=== PATIENT | female | born 1930 | race Caucasian/White ===

== ENCOUNTER 2018-03-27 16:55 | Inpatient (IN) | payer MEDICARE, OTHER ==
[2018-03-27] VITALS (9 sets, daily range): BP systolic 92–116; BP diastolic 36–47; BMI 25.5
[~2018-03-27] VITALS: Ht 144.8 cm; Wt 56.3 kg
--- NOTE | ~2018-03-27 | OP ---
PATIENT NAME: SHAWNA CASTANEDA MEDICAL RECORD: [id number] :34 LOCATION:[facility] D.2314 ADMISSION DATE:03/27/18 SURGEON: JENNY SLOAN MD DATE OF OPERATION: 03/27/2018 PROCEDURE: DC cardioversion. INDICATION: Hemodynamic instability with atrial fibrillation, new onset. PROCEDURE IN DETAIL: After informed consent was obtained and after detailed explanation of risks, benefits as well as alternative therapies, the patient and her family elected to proceed with DC cardioversion. She was given IV conscious sedation in the form of 50 mcg of fentanyl. She had an unstable heart rate and blood pressure. She received 1 shock at 275 joules restoring sinus rhythm, stabilizing her heart rate at 80 in sinus rhythm and systolic blood pressure 120. OVERALL IMPRESSION: Successful DC cardioversion from hemodynamic instability with atrial fibrillation to hemodynamic stability with sinus rhythm. TRANSINT:[id number] Voice Confirmation ID: [id number] DOCUMENT ID: [id number] JENNY SLOAN MD at 1711 CC: [id number] DICTATION DATE: 03/27/182120 VP DELIVERY: 03/27/182234 ADM IN [place] [id number] [place] [address]
--- NOTE | ~2018-03-27 | CN ---
PATIENT NAME:SHAWNA RAM MEDICAL RECORD: [id number] : 34 LOCATION:[facility].2314 ADMIT DATE: 03/27/18 ACCOUNT: [id number] CONSULTING PHYSICIAN: JENNY SLOAN MD REFERRING PHYSICIAN: EMANUEL FITZPATRICK DO DATE OF CONSULTATION: 03/27/2018 DIAGNOSES: 1. New onset atrial fibrillation. 2. Hypotension. 3. Shortness of breath, dyspnea on exertion. 4. Noninsulin-dependent diabetes. HISTORY OF PRESENT ILLNESS: Mrs. Ram has had a history of atrial fibrillation in the past. She has not had cardioversion in the past. She presents today with listlessness, shortness of breath, dyspnea on exertion, no real chest discomfort, found to be in new onset atrial fibrillation with heart rates in the 160s. She was placed on Cardizem drip and Betapace. This caused hypotension as well as bradycardia. She underwent DC cardioversion. She is now sinus rhythm in the 80s. She did have ST-T changes on her EKG during multiple EKGs for the atrial fibrillation. She has no history of ischemic heart disease. PHYSICAL EXAMINATION: GENERAL APPEARANCE: Well-nourished, well-developed, appears stated age. Level of distress, comfortable. PSYCHIATRIC: Mental status, alert, normal affect. Orientation, oriented to time, place and person. EYES: Lids and conjunctiva, noninjected. No discharge, no pallor. ENT: Lips, teeth, gums, normal dentition. Oropharynx, no cyanosis, no pallor. NECK: Carotid arteries, bilateral normal upstroke, no bruits, no thrills. JUGULAR VEINS: No jugular venous pressure or distention. CERVICAL LYMPH NODES: Nontender, nonenlarged. THYROID: Not enlarged. Nontender. No nodules. LUNGS: Respiratory effort, unlabored. CHEST: Normal curvature. No thoracic deformity. No chest wall tenderness. Percussion, resonant. Auscultation, clear. No wheezes, no rales, no rhonchi. CARDIOVASCULAR: Precordial exam, nondisplaced. No heaves or pericardial thrills. Rate and rhythm, regular. Heart sounds, normal S1, normal S2. No S3, no gallop, no rub. Systolic murmur, not heard. Diastolic murmur, not heard. EXTREMITIES: No cyanosis, no edema. Peripheral pulses, full and equal in all extremities, except as noted. No bruits appreciated. ABDOMEN: Soft, nondistended. Normal aorta. No bruit. Nontender. No masses. Liver, nontender, no hepatomegaly. Spleen, nontender, no splenomegaly. MUSCULOSKELETAL: No joint tenderness. No joint swelling. No erythema. NEUROLOGICAL: Normal gait, normal strength, normal tone. SKIN: Warm and dry. REVIEW OF SYSTEMS: The patient reports easy bruising but reports no swollen glands. The patient reports no fever, no night sweats, no significant weight gain, no significant weight loss. No significant exercise tolerance. The patient reports no dry eyes, no irritation, no vision change. Patient reports no difficulty hearing and no ear pain. Patient reports no frequent nose bleeds or nose and sinus problems. Patient reports on arm pain on exertion. No shortness of breath while lying down. No history of heart murmur. Patient reports no cough, no wheezing or coughing up blood. Patient reports no CONSULT REPORT [id number] TONYA,SHAWNA LINDA abdominal pain, no vomiting. Normal appetite. No diarrhea and not vomiting blood. No nausea and no constipation. Patient reports no incontinence. No difficulty urinating. No hematuria. No increased frequency. Patient reports no muscle aches. No weakness, no arthralgias, no back pain. No swelling of the extremities. Patient reports no abnormal mole, no jaundice, no rashes. Reports no loss of consciousness. No weakness and no numbness. No seizures, dizziness, or headaches. The patient reports no depression, no sleep disturbance, feeling safe in a relationship and no alcohol abuse. Patient reports on fatigue. Reports no runny nose or sinus pressure. No itching, no hives, and no frequent sneezing. IMPRESSION: Atrial fibrillation, now back in sinus rhythm. With the EKG changes, most likely she does have ischemic heart disease as a component to this. She was given 120 mg of Betapace as well as Cardizem. This caused bradycardia. We will plan to restart the Betapace tomorrow at 40 or 80 mg depending upon her ventricular response in the morning. At this time, she is stable with a systolic blood pressure in the 120s, heart rate in the 80s. We will reevaluate in the morning for timing of cardiac catheterization. TRANSINT:[id number] Voice Confirmation ID: [id number] DOCUMENT ID: [id number] JENNY SLOAN MD at 1711 CC: [id number] DICTATION DATE: 03/27/182050 RESERVATIONS AND TICKETING AGENT: 03/27/182149 ADM IN [place] [id number] [place] [id number]
--- NOTE | ~2018-03-27 | DS ---
PATIENT:SHAWNA RAM :34 MEDICAL RECORD: [id number] DISCHARGE SUMMARY ADMISSION DATE: 03/27/18 DISCHARGE DATE: 04/01/18 DATE OF SERVICE AND DISCHARGE: 04/01/2018. DIAGNOSES: 1. Atrial fibrillation. 2. Status post DC cardioversion. 3. Angina. 4. Coronary artery disease. 5. Two-vessel PTCA and stent. HOSPITAL COURSE: Ms. Ram presents with atrial fibrillation and angina, found to have two-vessel coronary artery disease, underwent successful DC cardioversion and discharged home with the addition of aspirin, Plavix, and sotalol to her medical regimen. Follow up with [facility] in one month. TRANSINT:[id number] Voice Confirmation ID: [id number] DOCUMENT ID: [id number] JENNY SLOAN MD at 1403 CC: [id number] DICTATION DATE: 04/01/18 1036 BAR TURNER: 04/01/18 1536 DIS IN 04/01/18 [place] [id number] [place] [address]
--- NOTE | ~2018-03-27 | OP ---
PATIENT NAME: SHAWNA CASTANEDA MEDICAL RECORD: [id number] :32 LOCATION:D.M2 D.2121 ADMISSION DATE:03/27/18 SURGEON: JENNY SLOAN MD DATE OF OPERATION: 03/29/2018 PROCEDURES: 1. PTCA stent LAD. 2. Intravascular ultrasound. 3. Selective coronary angiography. INDICATION: Angina and coronary artery disease. PROCEDURE IN DETAIL: After informed consent was obtained and after a detailed description of risks, benefits as well as alternative therapies, the patient elected to proceed with angiogram and angioplasty. The left femoral area was prepped and draped in normal sterile fashion. Left femoral artery was cannulated via modified Seldinger technique with placement of 6-Paraguayan sheath. All catheters exchanged through this sheath. FINDINGS: The left anterior descending has 70% stenosis in the proximal midsection confirmed by intravascular ultrasound, was addressed with a 3.5 x 12 mm Integrity stent. Result was 0% residual stenosis. OVERALL IMPRESSION: Successful percutaneous transluminal angioplasty stent of the left anterior descending going from 70% initial stenosis to 0% residual. TRANSINT:[id number] Voice Confirmation ID: [id number] DOCUMENT ID: [id number] JENNY SLOAN MD at 0847 CC: [id number] DICTATION DATE: 03/29/18 1237 SENIOR STAFF CONSULTANT: 03/29/18 1248 ADM IN [place] [id number]
--- NOTE | ~2018-03-27 | HEMODYNAMI ---
PATIENT:SHAWNA CASTANEDA MEDICAL RECORD: [id number] : 34 LOCATION:[facility] D231 ADMISSION DATE: 03/27/18 Generatedon:03/28/201811:42 Patient name: SHAWNA CASTANEDA Patient #: [id number] SSN: : 1930 Date of study: 03/28/2018 Page: Of Hemodynamic Procedure Report Patient Data Patient Demographics Procedure consent was obtained First Name: SHAWNA Gender: Female Last Name: TONYA : 1930 [facility] Initial: LINDA Age: 87 year(s) Patient #: [id number] Race: Additional ID: [id number] Contact details Address: [address] State: [place] City: [place] Zip code: [address] Past Medical History Allergies Allergen Reaction Date Comments Reported Sulfa drugs 04/27/2016 Sulfa drugs 03/28/2018 Admission Admission Data Admission Date: 03/27/2018 Admission Time: 18:40 Room #: [facility] Procedure Procedure Types Cath Procedure Diagnostic Procedure [facility] w/Coronaries PCI Procedure Coronary Stent Coronary Stent Initial Procedure Description Procedure Date Procedure Date: 03/28/2018 Procedure Start Time: 11:26 Procedure End Time: 11:39 Procedure Staff Name Function Luis A Gaming MD Performing Physician Barbara Kelsey RT Monitor Tamar Serrano RT Scrub Hal Anand RN Nurse Procedure Data Cath Procedure Fluoroscopy Diagnostic fluoroscopy Total fluoroscopy Time: 2.2 time: 2.2 min min Diagnostic fluoroscopy Total fluoroscopy dose: 273 dose: 273 mGy mGy Contrast Material Contrast Material Type Amount (ml) Isovue 300 67 Entry Location Entry Primary Successful Side Size Upsize Upsize Entry Closure Succes sful Closure Location (Fr) 1 (Fr) 2 (Fr) Remarks Device Remarks Femoral Right 5 Fr 6 Fr Exoseal artery Short Estimated blood loss: 10 ml Diagnostic catheters Device Type Used For End Catheter Placement MULTIPACK Pigtail 5 Fr Procedure catheter MULTIPACK JL 4.0 5Fr Procedure catheter MULTIPACK 3DRC 5Fr Procedure catheter Procedure Complications No complications Procedure Medications Medication Administration Route Dosage 0.9% NaCl I.V. 100 ml/hr Oxygen NC 2 l/min Heparin Flush Bag added to field 2 bags (1000units/500ml NS) Lidocaine 2% 20 Heparin Bolus I.V. 4000 units Integrilin (Bolus I.V. 4.5 ml 2mg/ml) Integrilin (Bolus wasted 5.5 ml 2mg/ml) Plavix P.O. 600 mg Hemodynamics Rest Heart Rate: 73 (bpm) Snapshots Pre Cath Intra NCS Post Cath Vital Signs Time Heart Resp SPO2 etCO2 NIBP (mmHg) Rhythm Pain Sedation Rate (ipm) (%) (mmHg) Status Level (bpm) 11:15:43 72 22 99 0 111/51(88) NSR 0 (11) 10(A) , No pain 11:20:29 74 14 99 0 124/53(93) NSR 0 (11) 10(A) , No pain 11:25:53 73 19 97 0 125/70(102) NSR 0 (11) 10(A) , No pain 11:30:34 69 29 92 0 137/112(124) NSR 0 (11) 10(A) , No pain 11:35:23 79 20 96 0 140/63(106) NSR 0 (11) 10(A) , No pain Medications Time Medication Route Dose Verified Delivered Reason Notes Effectiveness by by 11:14:58 0.9% NaCl I.V. 100 Hal Hal Per physician ml/hr Cheng Anand RN RN 11:15:08 Oxygen NC 2 Hal Hal Per physician l/min Cheng Anand RN RN 11:15:30 Heparin Flush added 2 Hal Hal used for Bag to bags Cheng Anand procedure (1000units/500ml field RN RN NS) 11:15:41 Lidocaine 2% 20ml Hal Hal for local vial Cheng Anand anesthetic RN RN 11:32:45 Heparin Bolus I.V. 4000 Hal Hal for units Cheng Anand anticoagulation RN RN 11:33:02 Integrilin I.V. 4.5 Hal Hal for (Bolus 2mg/ml) ml Cheng Anand antiplatelet RN RN therapy 11:33:23 Integrilin wasted 5.5 Hal Hal to sharp's (Bolus 2mg/ml) ml Lorigan Lorigan RN RN 11:41:43 Plavix P.O. 600 Hal Hong for mg Cheng Anand antiplatelet RN RN therapy Procedure Log Time Note 10:55:48 Time tracking: Regular hours (M-F 7:00 - 5:00) 10:55:52 Plan of Care:Hemodynamics will remain stable., Cardiac rhythm will remain stable., Comfort level will be maintained., Respiratory function will remain adequate., Patient/ family verbilizes understanding of procedure., Procedure tolerated without complication., Recovers from procedure without complications.. 10:56:47 H&P Date Dictated: 03/27/2018 Within 30 days and on chart.. 10:57:07 Tamar Counts RT(R) sent for patient. Start room use. 11:14:38 Patient received from ICU to CCL 1 Alert and oriented. Tansferred to table in Supine position. 11:14:39 Warm blankets applied, and sujey hugger turned on for patient comfort. 11:14:39 Correct patient and procedure confirmed by team. 11:14:41 Signed procedure consent form obtained from patient. 11:14:41 ECG and BP/O2 sat monitors applied to patient. 11:14:42 Vital chart was started 11:14:43 Full Disclosure recording started 11:14:58 0.9% NaCl 100 ml/hr I.V. was administered by Hal Anand RN; Per physician; 11:15:08 Oxygen 2 l/min NC was administered by Hal Anand RN; Per physician; 11:15:30 Heparin Flush Bag (1000units/500ml NS) 2 bags added to field was administered by Hal Anand RN; used for procedure; 11:15:35 Baseline sample Acquired. 11:15:39 Rhythm: sinus rhythm 11:15:41 Lidocaine 2% 20ml vial was administered by Hal Anand RN; for local anesthetic; 11:15:42 Pre-procedure instructions explained to patient. 11:15:42 Pre-op teaching completed and patient verbalized understanding. 11:15:45 Family in waiting room. 11:15:50 Patient NPO since Midnight. 11:16:08 Patient allergic to Sulfa drugs 11:16:11 Is the patient allergic to Iodine/contrast media? No. 11:16:13 Is patient on blood thinner?No 11:16:14 Patient diabetic? Yes. 11:16:33 PT SAID TOOK HER OFF METFORMIN 11:16:38 Patient not . Patient is over age 55. 11:16:49 Previous problem with sedation/anesthesia? No ? 11:16:50 Snore? No 11:16:51 Sleep apnea? No 11:16:51 Deviated septum? No 11:16:52 Opens mouth fully? Yes 11:16:53 Sticks out tongue? Yes 11:16:55 Airway obstruction? No ? 11:16:58 Dentures? Yes OUT 11:17:01 Pre procedure: right dorsailis pedis pulse 1+ Palpable, but thready & weak; easily obliterated 11:17:04 Patient pain scale 0/10 ?. 11:17:32 IV patent on arrival in right forearm with 0.9% NaCl at [facility]. 11:17:39 Right groin area was prepped with chlora-prep and draped in sterile fashion 11:17:40 Alarms reviewed by R. N. 11:17:41 Sharps counted by scrub and verified by R.N. 11:17:42 --------ALL STOP TIME OUT------ 11:17:43 Final Timeout: patient, procedure, and site verified with staff and physician. All members of the team are in agreement. 11:17:45 Right groin site verified by team. 11:17:48 Physical assessment completed. ASA score P 2 - A patient with mild systemic disease as per Luis A Gaming MD. 11:17:51 Sedation plan: IV Moderate Sedation Medication:Versed, Fentanyl 11:17:56 Use device set Femoral Dx 11:17:57 ACIST Syringe (45234) opened to sterile field. 11:17:57 Bag Decanter () opened to sterile field. 11:17:58 ACIST Hand Control (36539) opened to sterile field. 11:17:59 ACIST Manifold (55736) opened to sterile field. 11:18:00 Tegaderm 4 x 4 (1626W) opened to sterile field. 11:18:01 Medline Cath Pack ([id number]) opened to sterile field. 11:18:01 DIAGNOSTIC WIRE .035 260cm J wire (362055) opened to sterile field. 11:18:03 DIAGNOSTIC Multipack 5Fr catheter set (QG2188) opened to sterile field. 11:18:04 SHEATH Prelude 5Fr 0.035 (ZSV-0A-18-035) opened to sterile field. 11:25:25 Zero performed for pressure channel P1 11:25:33 Zero performed for pressure channel P1 11:25:40 Procedure started. 11:26:06 Local anesthetic to right femoral artery with Lidocaine 2% by Luis A Gaming MD.INITIAL ACCESS ONLY 11:27:00 A 5 Fr sheath was inserted into the Right Femoral artery 11:27:08 A MULTIPACK Pigtail 5 Fr catheter was advanced over the wire and used for Procedure. 11:27:22 LV gram done using PEARSON 11::31 Injector settings: Ml/sec: 10, Volume: 20, 11:27:55 EF : 30 % 11:27:57 Catheter removed. 11:28:01 A MULTIPACK JL 4.0 5Fr catheter was advanced over the wire and used for Procedure. 11:28:48 LCA angiography performed. 11:29:24 Catheter removed. 11:29:30 A MULTIPACK 3DRC 5Fr catheter was advanced over the wire and used for Procedure. 11:30:12 RCA angiography performed. 11:30:13 Catheter removed. 11:30:30 INFLATOR Merit BasixCompak (DH0231) opened to sterile field. 11:30:30 SHEATH 6FR [place] (VXB503) opened to sterile field. 11:30:31 CHOICE PT Extra Support 182cm wire ([id number]) opened to sterile field. 11:30:53 Sheath upsized to a 6 Fr Short. 11:31:07 GUIDE 6FR AR 2.0 catheter (OV3VC89) opened to sterile field. 11:31:22 6 Fr AR 2 guide catheter was inserted over the wire 11:32:10 CHOICE ES 182 wire advanced. 11:32:45 Heparin Bolus 4000 units I.V. was administered by Hal Anand RN; for anticoagulation; 11:33:02 Integrilin (Bolus 2mg/ml) 4.5 ml I.V. was administered by Hal Anand RN; for antiplatelet therapy; 11:33:18 Wire advanced across lesion. 11:33:23 Integrilin (Bolus 2mg/ml) 5.5 ml wasted was administered by Hal Anand RN; to sharp's; 11:33:53 Place stent Inflation Number: 1 A INTEGRITY RX 2.75 x 14 stent ([id number]) was prepped and advanced across the Dist RCA. The stent was deployed at 11 VENU for 0:10 (min:sec). 11:34:09 Stent catheter was removed intact over wire. 11:34:10 Wire removed. 11:34:10 Guide catheter removed. 11:34:22 EXOSEAL 6Fr (EX600) opened to sterile field. 11:34:33 Sheath removed intact; hemostasis achieved with Exoseal to the Right Femoral artery. 11:34:53 Procedure ended.(Physican Out) 11:35:26 Fluoroscopy time 02.20 minutes. 11:35:30 Fluoroscopy dose: 273 mGy 11:35:30 Flurop Dose total: 273 11:35:33 Contrast amount:Isovue 300 67ml. 11:35:38 Post-op/insertion site Left Femoral artery dressed using a 4 x 4 and Tegaderm. 11:36:17 Post procedure rhythm: unchanged. 11:36:19 Estimated blood loss: 10 ml 11:36:20 Post procedure instruction explained to patient.Patient verbalizes understanding. 11:36:20 Patient needs reinforcement of post procedure teaching. 11:36:40 Procedure type changed to Cath procedure, Diagnostic procedure, LHC, LHC w/Coronaries, PCI procedure, Coronary Stent, Coronary Stent Initial 11:38:49 Procedure and supply charges have been captured, reviewed, submitted and are correct. 11:38:52 Procedure Complication : No complications 11:39:16 Vital chart was stopped 11:39:16 See physician's report for complete and final results. 11:39:19 Report given to ICU. 11:39:21 Patient transfered to ICU with Bed. 11:39:38 Procedure ended. 11:39:38 Full Disclosure recording stopped 11:39:40 End room use (Document Last) 11:41:43 Plavix 600 mg P.O. was administered by Hal Anand RN; for antiplatelet therapy; Intervention Summary Intervention Notes Time ActionType Lesion and Equipment Action# Pressure Duration Attributes Used 11:33:53 Place stent Dist RCA INTEGRITY RX 1 11 00:10 2.75 x 14 stent ([id number]) Device Usage Item Name Manufacture Quantity Catalog Number Hospital Part Current M inimal Lot# / Charge Number Stock Stock Serial# Code ACIST Syringe Acist 1 09034 998175 772934 514719 2 0 (65203) Medical Systems Inc Bag Decanter Microtek 1 889547 62452 506176 5 (2001S) Medical Inc. ACIST Hand Acist 1 20322 556535 144489 576751 5 Control (27254) Medical Systems Inc ACIST Manifold Acist 1 08949 543612 823578 600804 5 (19335) Medical Systems Inc Tegaderm 4 x 4 3M 1 1626W 454839 635499 100448 5 (1626W) Medline Cath Cardinal 1 [id number] 794757 67107 159912 5 Pack Health ([id number]) DIAGNOSTIC WIRE St Fady 1 143547 494733 547807 166267 3 0 .035 260cm J wire (350578) DIAGNOSTIC Cardinal 1 HI8629 618722 36743 042639 3 0 Multipack 5Fr Health catheter set (WJ5233) SHEATH Prelude Merit 1 JCJ-0Y-78-035 967945 416478 521159 5 5Fr 0.035 Medical (JXX-1W-91-035) MULTIPACK Cardinal 1 896598 5 Pigtail 5 Fr Health catheter MULTIPACK JL Cardinal 1 087953 5 4.0 5Fr Health catheter MULTIPACK 3DRC Cardinal 1 473025 5 5Fr catheter Health INFLATOR Merit Merit 1 HL4531 347809 720899 187527 1 5 BasAppian Medical Medical ([id number]) SHEATH 6FR Terumo 1 ZSM703 987057 579840 778944 4 0 [place] (VHA673) CHOICE PT Extra [place] 1 [id number] 063816 440899 920812 5 Support 182cm Scientific wire ([id number]) GUIDE 6FR AR Medtronic 1 [id number] 126430 25705 448490 1 2.0 catheter ([id number]) INTEGRITY RX Medtronic 1 [id number] 987130 799112 754284 5 [id number] 2.75 x 14 stent ([id number]) EXOSEAL 6Fr Cardinal 1 EX600 511086 264398 217293 1 0 (EX600) Health Signature Audit [place] Stage Time Signature Unsigned Intra-Procedure 03/28/2018 Barbara Kelsey 11:42:09 AM RT(R) Signatures Monitor : Barbara Kelsey Signature : RT Date : Time : [facility] [address] [facility] [address]
--- NOTE | ~2018-03-27 | HEMODYNAMI ---
PATIENT:SHAWNA CASTANEDA MEDICAL RECORD: [id number] : 34 LOCATION:[facility] D.231 ADMISSION DATE: 03/27/18 Generatedon:03/29/201812:39 Patient name: SHAWNA CASTANEDA Patient #: [id number] SSN: : 1930 Date of study: 03/29/2018 Page: Of Hemodynamic Procedure Report Patient Data Patient Demographics Procedure consent was obtained First Name: SHAWNA Gender: Female Last Name: TONYA : 1930 [facility] Initial: LINDA Age: 87 year(s) Patient #: [id number] Race: Additional ID: [id number] Contact details Address: [address] State: [place] City: [place] Zip code: [address] Past Medical History Allergies Allergen Reaction Date Comments Reported Sulfa drugs 04/27/2016 Sulfa drugs 03/28/2018 Admission Admission Data Admission Date: 03/27/2018 Admission Time: 18:40 Room #: 2314 Procedure Procedure Types Cath Procedure Diagnostic Procedure FFR/IVUS Intra-Coronary IVUS Initial PCI Procedure Coronary Stent Coronary Stent Initial Procedure Description Procedure Date Procedure Date: 03/29/2018 Procedure Start Time: 12:22 Procedure End Time: 12:39 Procedure Staff Name Function Luis A Gaming MD Performing Physician Tamar Serrano RT Monitor Bc Rios RN Nurse Barbara Kelsey RT Scrub Procedure Data Cath Procedure Fluoroscopy Diagnostic fluoroscopy Total fluoroscopy Time: 2.9 time: 2.9 min min Diagnostic fluoroscopy Total fluoroscopy dose: 206 dose: 206 mGy mGy Contrast Material Contrast Material Type Amount (ml) Isovue 300 56 Entry Location Entry Primary Successful Side Size Upsize Upsize Entry Closure Succes sful Closure Location (Fr) 1 (Fr) 2 (Fr) Remarks Device Remarks Femoral Left 6 Fr Exoseal artery Short Estimated blood loss: 10 ml Procedure Complications No complications Procedure Medications Medication Administration Route Dosage Oxygen NC 4 l/min Heparin Flush Bag added to field 2 bags (1000units/500ml NS) 0.9% NaCl I.V. 100 ml/hr Fentanyl I.V. 25 mcg Versed I.V. 0.5 mg Heparin Bolus I.V. 4000 units Nitroglycerin IC/IA I.C. 200 mcg Hemodynamics Rest Heart Rate: 78 (bpm) Snapshots Pre Cath Intra NCS Post Cath Vital Signs Time Heart Resp SPO2 etCO2 NIBP Rhythm Pain Sedation Rate (ipm) (%) (mmHg) (mmHg) Status Level (bpm) 11:54:22 78 16 96 0 142/72(97) NSR 0 (11) 10(A) , No pain 11:59:45 79 16 93 0 126/56(92) NSR 0 (11) 10(A) , No pain 12:04:26 81 15 96 0 136/72(98) NSR 0 (11) 10(A) , No pain 12:09:13 76 16 83 0 131/53(90) NSR 0 (11) 10(A) , No pain 12:13:58 76 17 83 0 110/57(95) NSR 0 (11) 10(A) , No pain 12:18:38 70 17 98 0 119/52(95) NSR 0 (11) 10(A) , No pain 12:23:17 70 16 99 0 110/57(89) NSR 0 (11) 9(A) , No pain 12:27:57 70 17 100 0 118/50(78) NSR 0 (11) 9(A) , No pain 12:32:38 71 17 100 0 116/57(87) NSR 0 (11) 9(A) , No pain 12:35:40 73 17 100 0 121/67(95) NSR 0 (11) 9(A) , No pain Medications Time Medication Route Dose Verified Delivered Reason Notes Effectiveness by by 11:53:09 Oxygen NC 4 Luis A Yancey Per physician l/min Amberly Rios RN 11:53:17 Heparin Flush added 2 Luis A Yancey used for Bag to bags Amberly Rios RN procedure (1000units/500ml field NS) 11:53:26 0.9% NaCl I.V. 100 Luis A Yancey Per physician ml/hr Amberly Rios RN 12:19:59 Fentanyl I.V. 25 Luis A Yancey for sedation mcg Amberly Rios RN 12:20:14 Versed I.V. 0.5 Luis A Yancey for sedation mg Amberly Rios RN 12:23:52 Heparin Bolus I.V. 4000 Luis A Yancey for units Amberly Rios RN anticoagulation 12:31:49 Nitroglycerin I.C. 200 Luis A Gunn for IC/IA mcg Amberly Gaming MD vasodilation Procedure Log Time Note 11:33:16 Time tracking: Regular hours (M-F 7:00 - 5:00) 11:33:21 Plan of Care:Hemodynamics will remain stable., Cardiac rhythm will remain stable., Comfort level will be maintained., Respiratory function will remain adequate., Patient/ family verbilizes understanding of procedure., Procedure tolerated without complication., Recovers from procedure without complications.. 11:34:06 Tamar Counts RT(R) sent for patient. Start room use. 11:46:42 Patient received from ICU to CCL 1 Alert and oriented. Tansferred to table in Supine position. 11:46:45 Warm blankets applied, and sujey hugger turned on for patient comfort. 11:46:45 Correct patient and procedure confirmed by team. 11:46:47 Signed procedure consent form obtained from patient. 11:46:49 Pre-procedure instructions explained to patient. 11:46:49 Pre-op teaching completed and patient verbalized understanding. 11:53:09 Oxygen 4 l/min NC was administered by Bc Riso RN; Per physician; 11:53:17 Heparin Flush Bag (1000units/500ml NS) 2 bags added to field was administered by Bc Rios RN; used for procedure; 11:53:26 0.9% NaCl 100 ml/hr I.V. was administered by Bc Rios RN; Per physician; 11:53:28 Vital chart was started 11:56:06 ECG and BP/O2 sat monitors applied to patient. 11:56:07 Baseline sample Acquired. 11:56:10 Rhythm: sinus rhythm 11:56:12 Full Disclosure recording started 11:56:51 H&P Date Dictated: 03/27/2018 Within 30 days and on chart.. 11:56:55 Family unavailable. 11:56:56 Patient NPO since Midnight. 11:57:03 Is the patient allergic to Iodine/contrast media? No. 11:57:04 Is patient on blood thinner?Yes 11:57:08 ACC The patient was administered the following blood thiners within the last 24 hours: ACCPlavix 11:57:42 Patient diabetic? Yes. 11:57:43 If diabetic: On Metformin? No 11:57:47 Previous problem with sedation/anesthesia? No ? 11:57:49 Snore? No 11:57:50 Sleep apnea? No 11:57:51 Deviated septum? No 11:57:52 Opens mouth fully? Yes 11:57:53 Sticks out tongue? Yes 11:57:54 Airway obstruction? No ? 11:57:58 Dentures? Yes OUT 11:58:10 Pre procedure: left dorsailis pedis pulse 2+ Normal; easily identifiable; not easily obliterated 11:58:20 Patient pain scale 0/10 ?. 11:58:30 IV patent on arrival in right forearm with 0.9% NaCl at O. 11:58:37 Lab results completed and on chart. 11:58:40 Left groin area was prepped with chlora-prep and draped in sterile fashion 11:58:41 Alarms reviewed by R. N. 11:58:41 Sharps counted by scrub and verified by R.N. 11:58:48 Use device set CATH PACK 11:58:58 Use device set TAUTH PCI 11:59:05 SHEATH Prelude 6Fr 0.035 ([id number]-01-035) opened to sterile field. 11:59:09 CHOICE PT Extra Support 182cm wire ([id number]) opened to sterile field. 11:59:13 PERCUTANEOUS ENTRY 19GA needle opened to sterile field. 11:59:14 INFLATOR Merit BasixCompak (IA1869) opened to sterile field. 11:59:15 DIAGNOSTIC WIRE .035 260cm J wire (432111) opened to sterile field. 11:59:16 Bag Decanter (2002) opened to sterile field. 11:59:16 Medline Cath Pack ([id number]) opened to sterile field. 11:59:17 ACIST Manifold (67133) opened to sterile field. 11:59:18 ACIST Hand Control (70935) opened to sterile field. 11:59:18 ACIST Syringe (51791) opened to sterile field. 11:59:34 Tegaderm 4 x 4 (1626W) opened to sterile field. 12:01:40 Physician paged 12:03:22 Zero performed for pressure channel P1 12:19:35 Final Timeout: patient, procedure, and site verified with staff and physician. All members of the team are in agreement. 12:19:37 Left groin site verified by team. 12:19:40 Physical assessment completed. ASA score P 2 - A patient with mild systemic disease as per Luis A Gaming MD. 12:19:42 Sedation plan: IV Moderate Sedation Medication:Versed, Fentanyl 12::59 Fentanyl 25 mcg I.V. was administered by Bc Rios RN; for sedation; 12:20:14 Versed 0.5 mg I.V. was administered by Bc Rios RN; for sedation; 12:22:30 Procedure started. 12::34 Local anesthetic to left femerol artery with Lidocaine 2% by Luis A Gaming MD.INITIAL ACCESS ONLY 12:22:51 A 6 Fr Short sheath was inserted into the Left Femoral artery 12:23:33 GUIDE 6FR XBLAD 4.0 catheter ([id number]) opened to sterile field. 12:23:49 6 Fr XBLAD 4.0 guide catheter was inserted over the wire 12:23:52 Heparin Bolus 4000 units I.V. was administered by Bc Rios RN; for anticoagulation; 12:24:38 [place] IVUS Catheter (14266L) opened to sterile field. 12:25:14 CHOICE PT ES wire advanced. 12:25:57 IVUS catheter advanced over wire. 12:26:00 IVUS pass to LAD lesion performed. 12:28:38 IVUS catheter removed over wire. 12:29:37 Place stent Inflation Number: 1 A INTEGRITY RX 3.5 x 12 stent ([id number]) was prepped and advanced across the Prox LAD. The stent was deployed at 11 VENU for 0:04 (min:sec). 12:31:49 Nitroglycerin IC/IA 200 mcg I.C. was administered by Luis A Gaming MD; for vasodilation; 12:32:26 Stent catheter was removed intact over wire. 12:32:26 Wire removed. 12:32:37 Guide catheter removed. 12:32:45 Sheath removed intact; hemostasis achieved with Exoseal to the Left Femoral artery. 12:32:55 Procedure ended.(Physican Out) 12:33:42 Fluoroscopy time 02.90 minutes. 12:33:46 Flurop Dose total: 206 12:33:46 Fluoroscopy dose: 206 mGy 12:33:50 Contrast amount:Isovue 300 56ml. 12:33:52 Sharps counted by scrub and verified by R.N. 12:33:54 Insertion/operative site no bleeding no hematoma. 12:33:57 Post-op/insertion site Left Femoral artery dressed using a 4 x 4 and Tegaderm. 12:34:01 Post left femerol artery:stable, clean and dry 12:34:03 Post Procedure Pulses reassessed and unchanged 12:35:32 Post-procedure physical assessment completed. ASA score P 2 - A patient with mild systemic disease as per Luis A Gaming MD. 12:35:34 Post procedure rhythm: unchanged. 12:35:36 Estimated blood loss: 10 ml 12:35:38 Post procedure instruction explained to patient.Patient verbalizes understanding. 12:35:38 Patient needs reinforcement of post procedure teaching. 12:35:45 Procedure type changed to Cath procedure, Diagnostic procedure, FFR/IVUS, Intra-Coronary IVUS Initial, PCI procedure, Coronary Stent, Coronary Stent Initial 12:35:49 Procedure Complication : No complications 12:35:52 See physician's report for complete and final results. 12:36:02 EXOSEAL 6Fr (EX600) opened to sterile field. 12:37:24 Procedure and supply charges have been captured, reviewed, submitted and are correct. 12:38:54 Vital chart was stopped 12:38:58 Report given to ICU. 12:39:02 Patient transfered to ICU with Bed. 12:39:13 Procedure ended. 12:39:13 Full Disclosure recording stopped 12:39:17 End room use (Document Last) Intervention Summary Intervention Notes Time ActionType Lesion and Equipment Action# Pressure Duration Attributes Used 12:29:37 Place stent Prox LAD INTEGRITY RX 1 11 00:05 3.5 x 12 stent ([id number]) Device Usage Item Name Manufacture Quantity Catalog Number Hospital Part Current Minimal Lot# / Charge Number Stock Stock Serial# Code SHEATH Prelude Merit 1 [id number] [id number] [id number] 997519 5 6Fr 0.035 Medical ([id number]) CHOICE PT Extra Botkins 1 [id number] 188933 339961 849811 5 Support 182cm Scientific wire ([id number]) PERCUTANEOUS Cook Medical 1 [id number] 080271 286896 5 ENTRY 19GA needle INFLATOR Merit Merit 1 [id number] 146347 933820 136022 15 [facility] ([id number]) DIAGNOSTIC WIRE St Fady 1 545344 619917 898091 782786 30 .035 260cm J wire (117227) Bag Decanter Microtek 1 2002S 107512 60202 494808 5 (2001S) Medical Inc. Medline Cath Cardinal 1 [id number] 158928 95866 719415 5 Aginova ([id number]) ACIST Manifold Acist 1 19242 400316 825065 335823 5 (05393) Medical Systems Inc ACIST Hand Acist 1 36065 025240 754292 090409 5 Control (11833) Medical Systems Inc ACIST Syringe Acist 1 30433 864004 771727 542889 20 (94192) Medical Systems Inc Tegaderm 4 x 4 3M 1 1626W 946719 892779 601087 5 (1626W) GUIDE 6FR XBLAD Cardinal 1 [id number] 996165 672270 970484 3 4.0 catheter Health ([id number]) [place] 1 68180B 246683 389254 582462 8 [place] IVUS Catheter (93628S) INTEGRITY RX Medtronic 1 [id number] 031130 102801 431377 5 [id number] 3.5 x 12 stent ([id number]) EXOSEAL 6Fr Cardinal 1 EX600 938935 048786 242382 10 (EX600) Health Signature Audit [place] Stage Time Signature Unsigned Intra-Procedure 03/29/2018 Tamar 12:39:28 PM Counts RT(R) Signatures Monitor : Tamar Signature : Counts RT Date : Time : [facility] [address] [place] [address]
--- NOTE | ~2018-03-27 | OP ---
PATIENT NAME: SHAWNA CASTANEDA MEDICAL RECORD: [id number] :32 LOCATION:D.[facility] D.2314 ADMISSION DATE:03/27/18 SURGEON: JENNY SLOAN MD DATE OF OPERATION: 03/28/2018 PROCEDURES: 1. PTCA stent RCA. 2. Left heart catheterization. 3. Selective coronary angiography. 4. Left ventriculogram. INDICATION: Angina and coronary artery disease. PROCEDURE IN DETAIL: After informed consent was obtained and after a detailed description of the risks, benefits as well as alternative therapies, the patient elected to proceed with angiogram and angioplasty. The right femoral area was prepped and draped in normal sterile fashion. Right femoral artery was cannulated via modified Seldinger technique with placement of 6-Kiswahili sheath. All catheters exchanged through this sheath. FINDINGS: The left ventriculogram was performed in standard 30-degree PEARSON view reveals global hypokinesis throughout all segments. Overall ejection fraction estimated at 30%. SELECTIVE CORONARY ANGIOGRAPHY: 1. Left main is with no significant angiographic disease. 2. Left anterior descending has an area of 80% stenosis in the mid vessel. 3. Left circumflex has moderate irregularities, but no flow-limiting stenosis. 4. Right coronary artery has 80% stenosis in the mid vessel. PTCA STENT OF THE RIGHT CORONARY ARTERY: The stent used is a 2.75 x 14 mm Integrity. Result was 0% residual stenosis. OVERALL IMPRESSION: Successful percutaneous transluminal coronary angioplasty stent of the right coronary artery going from 80% initial stenosis to 0% residual. PLAN: For PTCA stent of the LAD in the near future. TRANSINT:[id number] Voice Confirmation ID: [id number] DOCUMENT ID: [id number] JENNY SLOAN MD at 1711 CC: [id number] DICTATION DATE: 03/28/18 1143 GREENHOUSE LABORER: 03/28/18 1233 [place] [address]
[~2018-03-27 16:55] MED LIST: ACETAMINOPHEN325 MG PO; GLUCOPHAGE500 MG PO; MULTIPLE VITAMI1 TA1 PO; PLAVIX75 MG PO; SYNTHROID50 MCG PO
[2018-03-27 17:33] LABS: BASOPHILS 0.2 % (0-2); HEMATOCRIT 41.3 % (36.0-48.0); HEMOGLOBIN 13.5 g/dL (12-16); IMMATURE GRANULOCYTES 0.2 % (0-5); LYMPHOCYTES 23.1 % (15-50); MCH 31.6 pg (26.0-34.0); MCHC 32.7 g/dL (31.0-37.0); MCV 96.7 fL (80.0-100.0); MEAN PLATELET VOLUME 10.6 fL (7.4-10.4); MONOCYTES 7.1 % (2-11); NEUTROPHILS 68.4 % (40-80); PLATELET COUNT 257 10x3/uL (130-400); RBC 4.27 10x6/uL (4.00-5.40); RDW 13.5 % (11.5-14.5); WBC 9.2 10x3/uL (4.8-10.8)
[2018-03-27 17:41] LABS: INR 1.08 (0.85-1.17); PROTIME 13.6 SECONDS (11.6-15.0)
[2018-03-27 17:42] LABS: APTT 34.9 SECONDS (22.8-39.4)
[2018-03-27 17:43] LABS: D-DIMER-QUANTITATIVE 1.38 ug/mLFEU (0.20-0.54)
[2018-03-27 17:48] LABS: ALKALINE PHOSPHATASE 74 U/L (46-116); ALT (SGPT) 32 U/L (10-68); BILIRUBIN - TOTAL 0.49 mg/dL (0.2-1.3); CALC OSMOLALITY 289 mosm/kg (275-300); CALCIUM 9.7 mg/dL (8.5-10.1); CHLORIDE - SERUM 104 mmol/L (98-107); CREATININE - SERUM 1.1 mg/dL (0.6-1.3); GLUCOSE 146 mg/dL (74-106); POTASSIUM - SERUM 4.1 mmol/L (3.5-5.1); PROTEIN - SERUM 8.3 g/dL (6.4-8.2); SODIUM 142 mmol/L (136-145); UREA NITROGEN 24 mg/dL (7-18); eGFR NON AFRICAN AMERICAN 50 mL/min (90-120)
[2018-03-27 18:08] LABS: CKMB 0.1 U/L (0.0-3.6); CREATINE KINASE 35 UL (21-215); TROPONIN-I < 0.017 ng/mL (0.000-0.060)
[2018-03-27 21:23] LABS: MAGNESIUM - SERUM 2.1 mg/dL (1.8-2.4); THYROID STIMULATING HORMONE 4.07 uIU/mL (0.36-3.74)
[2018-03-28] VITALS (39 sets, daily range): BP systolic 92–154; BP diastolic 39–93; Ht 144.8 cm; Wt 56.3 kg
[2018-03-28 01:29] LABS: CKMB 0.5 U/L (0.0-3.6); CREATINE KINASE 29 UL (21-215); TROPONIN-I 0.026 ng/mL (0.000-0.060)
[2018-03-28 07:02] LABS: BASOPHILS 0.1 % (0-2); EOSINOPHILS 0 % (0-7); HEMATOCRIT 35.8 % (36.0-48.0); HEMOGLOBIN 11.6 g/dL (12-16); IMMATURE GRANULOCYTES 0.3 % (0-5); LYMPHOCYTES 16.2 % (15-50); MCH 31.3 pg (26.0-34.0); MCHC 32.4 g/dL (31.0-37.0); MCV 96.5 fL (80.0-100.0); MEAN PLATELET VOLUME 10.3 fL (7.4-10.4); MONOCYTES 6.3 % (2-11); NEUTROPHILS 77.1 % (40-80); PLATELET COUNT 240 10x3/uL (130-400); RBC 3.71 10x6/uL (4.00-5.40); RDW 13.5 % (11.5-14.5); WBC 9.8 10x3/uL (4.8-10.8)
[2018-03-28 07:29] LABS: ALBUMIN 3.1 g/dL (3.4-5.0); ALKALINE PHOSPHATASE 75 U/L (46-116); ALT (SGPT) 70 U/L (10-68); BILIRUBIN - TOTAL 0.63 mg/dL (0.2-1.3); CALC OSMOLALITY 290 mosm/kg (275-300); CALCIUM 9.5 mg/dL (8.5-10.1); CHLORIDE - SERUM 110 mmol/L (98-107); CKMB 0.4 U/L (0.0-3.6); CREATINE KINASE 25 UL (21-215); CREATININE - SERUM 1.1 mg/dL (0.6-1.3); GLUCOSE 213 mg/dL (74-106); MAGNESIUM - SERUM 1.8 mg/dL (1.8-2.4); POTASSIUM - SERUM 5.4 mmol/L (3.5-5.1); PROTEIN - SERUM 6.6 g/dL (6.4-8.2); SODIUM 141 mmol/L (136-145); TROPONIN-I 0.035 ng/mL (0.000-0.060); UREA NITROGEN 24 mg/dL (7-18); eGFR NON AFRICAN AMERICAN 50 mL/min (90-120)
[2018-03-29] VITALS (20 sets, daily range): BP systolic 102–149; BP diastolic 56–92
[2018-03-29 05:05] LABS: BASOPHILS 0.2 % (0-2); EOSINOPHILS 0.3 % (0-7); HEMATOCRIT 34.4 % (36.0-48.0); HEMOGLOBIN 10.8 g/dL (12-16); IMMATURE GRANULOCYTES 0.4 % (0-5); LYMPHOCYTES 17.2 % (15-50); MCH 30.7 pg (26.0-34.0); MCHC 31.4 g/dL (31.0-37.0); MCV 97.7 fL (80.0-100.0); MEAN PLATELET VOLUME 10.5 fL (7.4-10.4); NEUTROPHILS 72.9 % (40-80); PLATELET COUNT 236 10x3/uL (130-400); RBC 3.52 10x6/uL (4.00-5.40); RDW 13.7 % (11.5-14.5); WBC 8.9 10x3/uL (4.8-10.8)
[2018-03-29 05:12] LABS: ALBUMIN 2.6 g/dL (3.4-5.0); BILIRUBIN - TOTAL 0.27 mg/dL (0.2-1.3); CALCIUM 7.4 mg/dL (8.5-10.1); CREATININE - SERUM 0.9 mg/dL (0.6-1.3); MAGNESIUM - SERUM 1.5 mg/dL (1.8-2.4); PROTEIN - SERUM 5.1 g/dL (6.4-8.2)
[2018-03-29 05:15] LABS: ANION GAP 15.8 mmol/L (8-16); POTASSIUM - SERUM 3.8 mmol/L (3.5-5.1)
[2018-03-30 00:57] VITALS: BP 126/57
[2018-03-30 04:28] VITALS: BP 133/66
[2018-03-30 05:29] LABS: ALBUMIN 2.9 g/dL (3.4-5.0); ALKALINE PHOSPHATASE 72 U/L (46-116); ALT (SGPT) 69 U/L (10-68); CALCIUM 7.9 mg/dL (8.5-10.1); CARBON DIOXIDE 22.1 mmol/L (21.0-32.0); CHLORIDE - SERUM 108 mmol/L (98-107); CREATININE - SERUM 0.7 mg/dL (0.6-1.3); GLUCOSE 106 mg/dL (74-106); MAGNESIUM - SERUM 1.6 mg/dL (1.8-2.4); POTASSIUM - SERUM 3.7 mmol/L (3.5-5.1); PROTEIN - SERUM 5.8 g/dL (6.4-8.2); SODIUM 140 mmol/L (136-145); eGFR NON AFRICAN AMERICAN 84 mL/min (90-120)
[2018-03-30 05:31] LABS: CALC OSMOLALITY 280 mosm/kg (275-300); UREA NITROGEN 17 mg/dL (7-18)
[2018-03-30 05:39] LABS: BASOPHILS 0.2 % (0-2); EOSINOPHILS 1.1 % (0-7); HEMATOCRIT 31.9 % (36.0-48.0); HEMOGLOBIN 10.1 g/dL (12-16); IMMATURE GRANULOCYTES 0.6 % (0-5); LYMPHOCYTES 14.8 % (15-50); MCH 30.8 pg (26.0-34.0); MCHC 31.7 g/dL (31.0-37.0); MCV 97.3 fL (80.0-100.0); MEAN PLATELET VOLUME 10.4 fL (7.4-10.4); MONOCYTES 7.5 % (2-11); NEUTROPHILS 75.8 % (40-80); PLATELET COUNT 235 10x3/uL (130-400); RBC 3.28 10x6/uL (4.00-5.40); RDW 13.7 % (11.5-14.5)
[2018-03-30 09:01] VITALS: BP 159/72
[2018-03-30 13:30] VITALS: BP 133/61
[2018-03-30 20:00] VITALS: BP 137/56
[2018-03-31] VITALS: BP 134/49
[2018-03-31 04:00] VITALS: BP 146/64
[2018-03-31 05:04] LABS: BASOPHILS 0.1 % (0-2); EOSINOPHILS 1.5 % (0-7); HEMATOCRIT 29.8 % (36.0-48.0); HEMOGLOBIN 9.5 g/dL (12-16); IMMATURE GRANULOCYTES 0.6 % (0-5); LYMPHOCYTES 16.9 % (15-50); MCH 30.5 pg (26.0-34.0); MCHC 31.9 g/dL (31.0-37.0); MCV 95.8 fL (80.0-100.0); MEAN PLATELET VOLUME 10.1 fL (7.4-10.4); MONOCYTES 8.1 % (2-11); NEUTROPHILS 72.8 % (40-80); PLATELET COUNT 213 10x3/uL (130-400); RBC 3.11 10x6/uL (4.00-5.40); RDW 13.7 % (11.5-14.5)
[2018-03-31 05:24] LABS: WBC 6.8 10x3/uL (4.8-10.8)
[2018-03-31 05:33] LABS: ALBUMIN 2.6 g/dL (3.4-5.0); ALKALINE PHOSPHATASE 63 U/L (46-116); ALT (SGPT) 54 U/L (10-68); CALC OSMOLALITY 285 mosm/kg (275-300); CALCIUM 8.1 mg/dL (8.5-10.1); CARBON DIOXIDE 26.7 mmol/L (21.0-32.0); CHLORIDE - SERUM 109 mmol/L (98-107); CREATININE - SERUM 0.6 mg/dL (0.6-1.3); GLUCOSE 99 mg/dL (74-106); MAGNESIUM - SERUM 1.7 mg/dL (1.8-2.4); POTASSIUM - SERUM 3.4 mmol/L (3.5-5.1); PROTEIN - SERUM 5.6 g/dL (6.4-8.2); SODIUM 144 mmol/L (136-145); eGFR NON AFRICAN AMERICAN > 90 mL/min (90-120)
[2018-03-31 05:34] LABS: UREA NITROGEN 11 mg/dL (7-18)
[2018-03-31 08:38] VITALS: BP 154/64
[2018-03-31 11:21] VITALS: BP 129/51
[2018-03-31 16:34] VITALS: BP 132/55
[2018-03-31 20:02] VITALS: BP 145/64
[2018-04-01] VITALS: BP 134/65
[2018-04-01 04:00] VITALS: BP 152/74
[2018-04-01 06:07] LABS: BASOPHILS 0.2 % (0-2); EOSINOPHILS 2.1 % (0-7); HEMATOCRIT 31.9 % (36.0-48.0); HEMOGLOBIN 10.1 g/dL (12-16); IMMATURE GRANULOCYTES 0.5 % (0-5); LYMPHOCYTES 18.7 % (15-50); MCH 30.6 pg (26.0-34.0); MCHC 31.7 g/dL (31.0-37.0); MCV 96.7 fL (80.0-100.0); MEAN PLATELET VOLUME 10.2 fL (7.4-10.4); MONOCYTES 9.2 % (2-11); NEUTROPHILS 69.3 % (40-80); PLATELET COUNT 232 10x3/uL (130-400); RDW 13.7 % (11.5-14.5); WBC 6.2 10x3/uL (4.8-10.8)
[2018-04-01 06:41] LABS: ALBUMIN 2.8 g/dL (3.4-5.0); ALKALINE PHOSPHATASE 62 U/L (46-116); ALT (SGPT) 51 U/L (10-68); CALC OSMOLALITY 285 mosm/kg (275-300); CALCIUM 8.9 mg/dL (8.5-10.1); CARBON DIOXIDE 27.8 mmol/L (21.0-32.0); CHLORIDE - SERUM 107 mmol/L (98-107); CREATININE - SERUM 0.6 mg/dL (0.6-1.3); GLUCOSE 111 mg/dL (74-106); MAGNESIUM - SERUM 1.8 mg/dL (1.8-2.4); PROTEIN - SERUM 6.1 g/dL (6.4-8.2); SODIUM 143 mmol/L (136-145); UREA NITROGEN 12 mg/dL (7-18); eGFR NON AFRICAN AMERICAN > 90 mL/min (90-120)
[2018-04-01 08:15] VITALS: BP 155/74
[2018-04-01 11:21] VITALS: BP 142/63
[2018-04-01] MEDS ORDERED: ASPIRIN81 MG PO (14:34)
[2018-04-01] MEDS ORDERED: PLAVIX75 MG PO (14:34)
[2018-04-01] MEDS ORDERED: BETAPACE 80 MG80 MG PO (16:19)
== END 2018-04-01 17:29 | disposition home or self-care (01) | DRG 249 ==
LOC: D.ER 16:55 → D.CVICU 18:40 → D.ICU 18:40 → D.EDHOLD 18:40 → D.M2 18:40 → D.CVICU 21:33 → D.ICU 03-28 10:01 → D.M2 03-29 22:29
PROVIDERS: Family Medicine; Internal Medicine Interventional Cardiology; Physician Assistant Medical
PROC: 4A023N7 Measurement of Cardiac Sampling and Pressure, Left Heart, Percutaneous Approach (ICD-10-PCS; 2018-03-28)
PROC: B2111ZZ Fluoroscopy of Multiple Coronary Arteries using Low Osmolar Contrast (ICD-10-PCS; 2018-03-28)
PROC: B2151ZZ Fluoroscopy of Left Heart using Low Osmolar Contrast (ICD-10-PCS; 2018-03-28)
PROC: 02703DZ Dilation of Coronary Artery, One Artery with Intraluminal Device, Percutaneous Approach (ICD-10-PCS; principal; 2018-03-28 10:57)
PROC: 02703DZ Dilation of Coronary Artery, One Artery with Intraluminal Device, Percutaneous Approach (ICD-10-PCS; 2018-03-29)
PROC: B240ZZ3 Ultrasonography of Single Coronary Artery, Intravascular (ICD-10-PCS; 2018-03-29)
DX: I25.119 Atherosclerotic heart disease of native coronary artery with unspecified angina pectoris (principal); I48.91 Unspecified atrial fibrillation; I95.9 Hypotension, unspecified; I10 Essential (primary) hypertension; E11.65 Type 2 diabetes mellitus with hyperglycemia; E03.9 Hypothyroidism, unspecified; D64.9 Anemia, unspecified

== ENCOUNTER 2018-04-16 09:47 | Emergency (ER) | payer MEDICARE, OTHER ==
[~2018-04-16] VITALS: Ht 144.8 cm; Wt 47.3 kg
[~2018-04-16 09:47] MED LIST changes: +ASPIRIN81 MG PO; +BETAPACE 80 MG80 MG PO
[2018-04-16 09:52] VITALS: Ht 144.8 cm; Wt 47.3 kg
[2018-04-16 12:25] LABS: BASOPHILS 0.6 % (0-2); EOSINOPHILS 1.9 % (0-7); HEMOGLOBIN 13.1 g/dL (12-16); IMMATURE GRANULOCYTES 0.2 % (0-5); LYMPHOCYTES 21.9 % (15-50); MCH 30.4 pg (26.0-34.0); MCV 95.1 fL (80.0-100.0); MEAN PLATELET VOLUME 10.6 fL (7.4-10.4); MONOCYTES 8.6 % (2-11); NEUTROPHILS 66.8 % (40-80); PLATELET COUNT 293 10x3/uL (130-400); RBC 4.31 10x6/uL (4.00-5.40); WBC 6.2 10x3/uL (4.8-10.8)
[2018-04-16 12:34] LABS: ALBUMIN 3.6 g/dL (3.4-5.0); ALKALINE PHOSPHATASE 73 U/L (46-116); ALT (SGPT) 17 U/L (10-68); BILIRUBIN - TOTAL 0.47 mg/dL (0.2-1.3); CALC OSMOLALITY 281 mosm/kg (275-300); CALCIUM 10.2 mg/dL (8.5-10.1); CARBON DIOXIDE 24.4 mmol/L (21.0-32.0); CHLORIDE - SERUM 103 mmol/L (98-107); CREATININE - SERUM 0.7 mg/dL (0.6-1.3); GLUCOSE 109 mg/dL (74-106); POTASSIUM - SERUM 4.2 mmol/L (3.5-5.1); PROTEIN - SERUM 8.3 g/dL (6.4-8.2); SODIUM 139 mmol/L (136-145); UREA NITROGEN 22 mg/dL (7-18); eGFR NON AFRICAN AMERICAN 84 mL/min (90-120)
[2018-04-16 12:53] LABS: APPEARANCE CLEAR (CLEAR); BILIRUBIN NEGATIVE (NEGATIVE); COLOR YELLOW (YELLOW); GLUCOSE NEGATIVE (NEGATIVE); KETONE NEGATIVE (NEGATIVE); NITRITE NEGATIVE (NEGATIVE); PROTEIN NEGATIVE (NEGATIVE); UROBILINOGEN NORMAL (NORMAL)
[2018-04-16 15:27] VITALS: BP 164/72
== END 2018-04-16 15:29 | disposition home or self-care (01) ==
LOC: D.ER 09:47
PROVIDERS: Family Medicine
DX: R07.81 Pleurodynia (principal); Z86.79 Personal history of other diseases of the circulatory system; R91.1 Solitary pulmonary nodule; R05 Cough

== ENCOUNTER → 2018-04-26 08:25 | Outpatient (CLI) | payer MEDICARE, OTHER ==
[2018-04-16 09:52] VITALS: BMI 22.5
[~2018-04-26 08:25] MED LIST changes: +DURAGESIC1 PATCH .7 TRANSDERM; +GLUCAGEN1 MG/VIAL IM; +GLUCAGEN1 MG/VIAL SC; +HUMULIN R100 U/ML SC; +HYDROCODON-ACE1 EAC7 PO; +HYDROCODON-ACE1 EAC9 PO; +LAC-HYDRIN 5226 ML TOPICAL; +MIRALAX17 GM PO; +MULTAQ400 MG PO; +NORCO-5 PO; +ONDANSETRON4 MG/2 M3 IV; +PROTONIX40 MG PO; +ZOFRAN ODT4 MG/UDTAB PO
== END | disposition home or self-care (01) ==
LOC: D.NM 08:25
DX: C50.919 Malignant neoplasm of unspecified site of unspecified female breast (principal); R91.8 Other nonspecific abnormal finding of lung field

== ENCOUNTER 2018-05-02 12:29 | Inpatient (IN) | payer MEDICARE, OTHER ==
[~2018-05-02] VITALS: Ht 144.8 cm; Wt 48.5 kg
[~2018-05-02 12:29] MED LIST changes: -DURAGESIC1 PATCH .7 TRANSDERM; -GLUCAGEN1 MG/VIAL IM; -GLUCAGEN1 MG/VIAL SC; -HUMULIN R100 U/ML SC; -HYDROCODON-ACE1 EAC7 PO; -HYDROCODON-ACE1 EAC9 PO; -LAC-HYDRIN 5226 ML TOPICAL; -MIRALAX17 GM PO; -MULTAQ400 MG PO; -NORCO-5 PO; -ONDANSETRON4 MG/2 M3 IV; -PROTONIX40 MG PO; -ZOFRAN ODT4 MG/UDTAB PO
[2018-05-02] MEDS ORDERED: HYDROCODON-ACE1 EAC9 PO (12:39)
[2018-05-02 13:55] LABS: BASOPHILS 0.2 % (0-2); EOSINOPHILS 0.2 % (0-7); HEMOGLOBIN 12.9 g/dL (12-16); IMMATURE GRANULOCYTES 0.3 % (0-5); LYMPHOCYTES 7.7 % (15-50); MCH 29.3 pg (26.0-34.0); MCHC 31.5 g/dL (31.0-37.0); MEAN PLATELET VOLUME 9.9 fL (7.4-10.4); MONOCYTES 5.8 % (2-11); NEUTROPHILS 85.8 % (40-80); PLATELET COUNT 315 10x3/uL (130-400); RBC 4.41 10x6/uL (4.00-5.40); RDW 14.4 % (11.5-14.5); WBC 11.4 10x3/uL (4.8-10.8)
[2018-05-02 14:47] LABS: APPEARANCE CLEAR (CLEAR); BILIRUBIN NEGATIVE (NEGATIVE); COLOR YELLOW (YELLOW); GLUCOSE NEGATIVE (NEGATIVE); NITRITE NEGATIVE (NEGATIVE); PROTEIN TRACE mg/dL (NEGATIVE); SPECIFIC GRAVITY 1.015 (1.005-1.020); UROBILINOGEN NORMAL (NORMAL)
[2018-05-02 14:48] LABS: KETONE MODERATE mg/dL (NEGATIVE)
[2018-05-02 14:50] LABS: EPITHELIAL CELLS OCC /hpf (0-5); RED CELLS - URINE 0-5 /hpf (0-5); WHITE CELLS - URINE OCC /hpf (0-5)
[2018-05-02 14:57] LABS: ALBUMIN 3.8 g/dL (3.4-5.0); ALKALINE PHOSPHATASE 70 U/L (46-116); ALT (SGPT) 20 U/L (10-68); BILIRUBIN - TOTAL 0.63 mg/dL (0.2-1.3); CALC OSMOLALITY 279 mosm/kg (275-300); CALCIUM 9.9 mg/dL (8.5-10.1); CARBON DIOXIDE 25.1 mmol/L (21.0-32.0); CHLORIDE - SERUM 98 mmol/L (98-107); CREATININE - SERUM 0.8 mg/dL (0.6-1.3); GLUCOSE 133 mg/dL (74-106); POTASSIUM - SERUM 4.3 mmol/L (3.5-5.1); PROTEIN - SERUM 8.2 g/dL (6.4-8.2); SODIUM 138 mmol/L (136-145); UREA NITROGEN 19 mg/dL (7-18); eGFR NON AFRICAN AMERICAN 72 mL/min (90-120)
[2018-05-02 15:07] LABS: PRO BNP 3327 pg/mL (0-450); THYROID STIMULATING HORMONE 1.99 uIU/mL (0.36-3.74)
[2018-05-02 15:09] LABS: C-REACTIVE PROTEIN 20.3 mg/dL (0.0-0.9); TROPONIN-I < 0.017 ng/mL (0.000-0.060)
[2018-05-02 20:00] VITALS: BP 128/83; BP 130/76
[2018-05-03] VITALS (7 sets, daily range): BP systolic 140–166; BP diastolic 55–96; Ht 144.8 cm; Wt 48.5 kg
[2018-05-03 05:48] LABS: BASOPHILS 0.2 % (0-2); EOSINOPHILS 0.5 % (0-7); HEMATOCRIT 36.3 % (36.0-48.0); HEMOGLOBIN 11.7 g/dL (12-16); IMMATURE GRANULOCYTES 0.2 % (0-5); LYMPHOCYTES 13.8 % (15-50); MCH 29.5 pg (26.0-34.0); MCHC 32.2 g/dL (31.0-37.0); MCV 91.4 fL (80.0-100.0); MONOCYTES 9.6 % (2-11); NEUTROPHILS 75.7 % (40-80); PLATELET COUNT 327 10x3/uL (130-400); RBC 3.97 10x6/uL (4.00-5.40); RDW 14.2 % (11.5-14.5)
[2018-05-03 05:50] LABS: WBC 8.5 10x3/uL (4.8-10.8)
[2018-05-03 06:18] LABS: CALC OSMOLALITY 278 mosm/kg (275-300); CALCIUM 9.2 mg/dL (8.5-10.1); CHLORIDE - SERUM 102 mmol/L (98-107); CREATININE - SERUM 0.5 mg/dL (0.6-1.3); GLUCOSE 126 mg/dL (74-106); POTASSIUM - SERUM 3.8 mmol/L (3.5-5.1); SODIUM 139 mmol/L (136-145); UREA NITROGEN 10 mg/dL (7-18); eGFR NON AFRICAN AMERICAN > 90 mL/min (90-120)
[2018-05-04 04:00] VITALS: BP 142/74
[2018-05-04 06:44] LABS: CALCIUM 9.2 mg/dL (8.5-10.1); CARBON DIOXIDE 26.7 mmol/L (21.0-32.0); CHLORIDE - SERUM 106 mmol/L (98-107); GLUCOSE 146 mg/dL (74-106); POTASSIUM - SERUM 4.1 mmol/L (3.5-5.1); SODIUM 140 mmol/L (136-145); eGFR NON AFRICAN AMERICAN 84 mL/min (90-120)
[2018-05-04 06:59] LABS: BASOPHILS 0.4 % (0-2); EOSINOPHILS 1.4 % (0-7); HEMATOCRIT 35.4 % (36.0-48.0); HEMOGLOBIN 11.1 g/dL (12-16); IMMATURE GRANULOCYTES 0.3 % (0-5); LYMPHOCYTES 18.5 % (15-50); MCH 28.7 pg (26.0-34.0); MCHC 31.4 g/dL (31.0-37.0); MCV 91.5 fL (80.0-100.0); MEAN PLATELET VOLUME 10.1 fL (7.4-10.4); MONOCYTES 9.1 % (2-11); NEUTROPHILS 70.3 % (40-80); PLATELET COUNT 312 10x3/uL (130-400); RBC 3.87 10x6/uL (4.00-5.40); RDW 14.4 % (11.5-14.5); WBC 7.7 10x3/uL (4.8-10.8)
[2018-05-04 07:10] LABS: CALC OSMOLALITY 282 mosm/kg (275-300); CREATININE - SERUM 0.7 mg/dL (0.6-1.3); UREA NITROGEN 16 mg/dL (7-18)
[2018-05-04 08:58] VITALS: BP 141/60
[2018-05-04 09:14] LABS: ANA REFLEX - DIRECT Negative (Negative)
[2018-05-04 20:00] VITALS: BP 157/70
[2018-05-05 04:00] VITALS: BP 148/63
[2018-05-05 04:59] LABS: BASOPHILS 0.5 % (0-2); EOSINOPHILS 2.3 % (0-7); HEMOGLOBIN 10.9 g/dL (12-16); IMMATURE GRANULOCYTES 0.4 % (0-5); LYMPHOCYTES 19.4 % (15-50); MCH 28.8 pg (26.0-34.0); MCHC 31.1 g/dL (31.0-37.0); MCV 92.3 fL (80.0-100.0); MEAN PLATELET VOLUME 10.1 fL (7.4-10.4); MONOCYTES 8.3 % (2-11); NEUTROPHILS 69.1 % (40-80); PLATELET COUNT 347 10x3/uL (130-400); RBC 3.79 10x6/uL (4.00-5.40); RDW 14.4 % (11.5-14.5); WBC 7.5 10x3/uL (4.8-10.8)
[2018-05-05 05:09] LABS: CALC OSMOLALITY 281 mosm/kg (275-300); CALCIUM 8.8 mg/dL (8.5-10.1); CARBON DIOXIDE 25.4 mmol/L (21.0-32.0); CHLORIDE - SERUM 106 mmol/L (98-107); CREATININE - SERUM 0.6 mg/dL (0.6-1.3); GLUCOSE 137 mg/dL (74-106); SODIUM 140 mmol/L (136-145); UREA NITROGEN 15 mg/dL (7-18); eGFR NON AFRICAN AMERICAN > 90 mL/min (90-120)
[2018-05-05 10:22] VITALS: BP 146/72
[2018-05-05 22:54] VITALS: BP 169/78
[2018-05-06 01:26] VITALS: BP 170/70
[2018-05-06 05:00] VITALS: BP 130/58
[2018-05-06 08:38] VITALS: BP 143/63
[2018-05-06 09:50] LABS: BASOPHILS 0.2 % (0-2); HEMATOCRIT 34.4 % (36.0-48.0); IMMATURE GRANULOCYTES 0.2 % (0-5); LYMPHOCYTES 15.1 % (15-50); MCV 90.8 fL (80.0-100.0); MEAN PLATELET VOLUME 9.8 fL (7.4-10.4); MONOCYTES 8.2 % (2-11); NEUTROPHILS 75.3 % (40-80); PLATELET COUNT 325 10x3/uL (130-400); RBC 3.79 10x6/uL (4.00-5.40); RDW 14.3 % (11.5-14.5)
[2018-05-06 10:15] LABS: CALC OSMOLALITY 276 mosm/kg (275-300); CALCIUM 8.8 mg/dL (8.5-10.1); CARBON DIOXIDE 26.2 mmol/L (21.0-32.0); CHLORIDE - SERUM 103 mmol/L (98-107); CREATININE - SERUM 0.5 mg/dL (0.6-1.3); GLUCOSE 143 mg/dL (74-106); POTASSIUM - SERUM 4.3 mmol/L (3.5-5.1); SODIUM 138 mmol/L (136-145); eGFR NON AFRICAN AMERICAN > 90 mL/min (90-120)
[2018-05-06 10:16] LABS: UREA NITROGEN 9 mg/dL (7-18)
[2018-05-06 12:09] VITALS: BP 158/78
[2018-05-06 15:23] VITALS: BP 158/67
[2018-05-06 20:00] VITALS: BP 167/75
[2018-05-07 04:39] LABS: BASOPHILS 0.4 % (0-2); EOSINOPHILS 1.8 % (0-7); HEMATOCRIT 34.8 % (36.0-48.0); IMMATURE GRANULOCYTES 0.4 % (0-5); LYMPHOCYTES 16.7 % (15-50); MCH 28.7 pg (26.0-34.0); MCHC 31.6 g/dL (31.0-37.0); MCV 90.9 fL (80.0-100.0); MEAN PLATELET VOLUME 9.7 fL (7.4-10.4); MONOCYTES 9.4 % (2-11); NEUTROPHILS 71.3 % (40-80); PLATELET COUNT 335 10x3/uL (130-400); RBC 3.83 10x6/uL (4.00-5.40); RDW 14.2 % (11.5-14.5); WBC 8.3 10x3/uL (4.8-10.8)
[2018-05-07 04:46] VITALS: BP 148/76
[2018-05-07 04:49] LABS: CALC OSMOLALITY 277 mosm/kg (275-300); CALCIUM 8.9 mg/dL (8.5-10.1); CARBON DIOXIDE 26.4 mmol/L (21.0-32.0); CHLORIDE - SERUM 103 mmol/L (98-107); CREATININE - SERUM 0.6 mg/dL (0.6-1.3); GLUCOSE 144 mg/dL (74-106); POTASSIUM - SERUM 3.9 mmol/L (3.5-5.1); SODIUM 138 mmol/L (136-145); UREA NITROGEN 10 mg/dL (7-18); eGFR NON AFRICAN AMERICAN > 90 mL/min (90-120)
[2018-05-07 09:28] VITALS: BP 143/64
[2018-05-07 13:25] VITALS: BP 150/74
[2018-05-07 20:00] VITALS: BP 163/73
[2018-05-08] VITALS: BP 96/69
[2018-05-08 05:52] LABS: BASOPHILS 0.3 % (0-2); EOSINOPHILS 2.1 % (0-7); HEMATOCRIT 33.5 % (36.0-48.0); HEMOGLOBIN 10.6 g/dL (12-16); IMMATURE GRANULOCYTES 0.3 % (0-5); MCH 28.6 pg (26.0-34.0); MCHC 31.6 g/dL (31.0-37.0); MCV 90.5 fL (80.0-100.0); MEAN PLATELET VOLUME 9.8 fL (7.4-10.4); MONOCYTES 6.5 % (2-11); NEUTROPHILS 76.8 % (40-80); PLATELET COUNT 311 10x3/uL (130-400); RDW 14.3 % (11.5-14.5); WBC 7.3 10x3/uL (4.8-10.8)
[2018-05-08 06:16] LABS: CALC OSMOLALITY 279 mosm/kg (275-300); CARBON DIOXIDE 26.2 mmol/L (21.0-32.0); CHLORIDE - SERUM 105 mmol/L (98-107); CREATININE - SERUM 0.6 mg/dL (0.6-1.3); GLUCOSE 164 mg/dL (74-106); POTASSIUM - SERUM 3.7 mmol/L (3.5-5.1); SODIUM 139 mmol/L (136-145); UREA NITROGEN 8 mg/dL (7-18); eGFR NON AFRICAN AMERICAN > 90 mL/min (90-120)
[2018-05-08 06:35] VITALS: BP 148/69
[2018-05-08 08:05] VITALS: BP 149/58
[2018-05-08 11:41] VITALS: BP 139/65
[2018-05-08] MEDS ORDERED: NORCO-5 PO (15:04)
[2018-05-08] MEDS ORDERED: DURAGESIC1 PATCH .7 TRANSDERM (15:04)
[2018-05-08] MEDS ORDERED: HUMULIN R100 U/ML SC (15:04)
[2018-05-08] MEDS ORDERED: GLUCAGEN1 MG/VIAL SC (15:04)
[2018-05-08] MEDS ORDERED: GLUCAGEN1 MG/VIAL IM (15:04)
[2018-05-08] MEDS ORDERED: PROTONIX40 MG PO (15:05)
[2018-05-08] MEDS ORDERED: ONDANSETRON4 MG/2 M3 IV (15:05)
[2018-05-08 15:48] VITALS: BP 133/55
== END 2018-05-08 19:58 | DRG 552 ==
LOC: D.ER 12:29 → D.EDHOLD 16:30 → D.MS 16:30 → D.EDHOLD 16:30 → OBSVTIME 16:31 → D.MS 17:35
PROVIDERS: Family Medicine; Internal Medicine Nephrology
DX: M50.121 Cervical disc disorder at C4-C5 level with radiculopathy (principal); N17.9 Acute kidney failure, unspecified; M48.56XA Collapsed vertebra, not elsewhere classified, lumbar region, initial encounter for fracture; M50.122 Cervical disc disorder at C5-C6 level with radiculopathy; E86.0 Dehydration; D64.9 Anemia, unspecified; K59.00 Constipation, unspecified; I10 Essential (primary) hypertension; M51.36 Other intervertebral disc degeneration, lumbar region; M46.44 Discitis, unspecified, thoracic region

== ENCOUNTER 2018-05-08 19:52 | Inpatient (IN) | payer MEDICARE, OTHER ==
[~2018-05-08] VITALS: Ht 147.3 cm; Wt 47.6 kg
--- NOTE | ~2018-05-08 | RHP ---
PATIENT: SHAWNA CASTANEDA MEDICAL RECORD: [id number] ACCOUNT: [id number] LOCATION:[facility] Markel1111 : 32 ADMISSION DATE: 05/08/18 REHABILITATION HISTORY AND PHYSICAL EXAMINATION POST ADMISSION PHYSICIAN EXAMINATION POST-ADMISSION PHYSICAL EXAM AND HISTORY AND PHYSICAL DATE OF ADMISSION: 05/08/2018 ADMITTING DIAGNOSIS: Cervical radiculopathy. HISTORY OF PRESENT ILLNESS: The patient is admitted to the inpatient rehab for a neurological condition, cervical radiculopathy. She is an 87-year-old female who states that she had her symptoms starting back in March, had progressively gotten worse. She was admitted to the hospital on 05/03/2018 with weakness, diffuse back pain, neck pain and unable to tolerate oral intake. During her acute stay, she was unable to lift her head from the pillow and the neurosurgery was consulted. She had a series of CT and MRI scans of the neck and back and findings of multilevel problems. Neurosurgery does not want to proceed with any surgical intervention at this time secondary to the patient's pain and symptoms have resolved and the patient is now able to get out of bed with physical therapy. She is on telemetry. She lives at home with her , was independent with her ADLs, moderately independent with use of a single point cane for balance and ambulation. She currently set up for mod assist for ADLs and mod assist to total assist for mobility. She plans on returning home with her , hopefully to her prior level of functioning after her inpatient stay here in the hospital. Comorbidities in this patient include cervical radiculopathy, acute cervical neck pain, acute kidney injury, hypertension, diabetes, acute atrial fib, severe facet hypertrophy and grade I spondylolisthesis, foraminal narrowing, chronic valvular heart disease, generalized weakness, constipation, lung nodule, nonproductive cough, chronic breast cancer, dehydration, anemia, hypothyroidism and multilevel degenerative changes. PAST MEDICAL HISTORY: Significant for hypertension, MIs, stents and angioplasty, breast cancer and constipation. PAST SURGICAL HISTORY: Includes left mastectomy, cataract surgery, spinal stenosis, heart catheterization. ALLERGIES: SULFA. MEDICATIONS: Current medications include fentanyl patch 25 mcg daily, Protonix 40 mg daily, multivitamin daily, Synthroid 50 mcg daily, insulin, she is on a low resistant with Humulin regular. She is on Plavix 75 mg daily, aspirin chewable 81 mg daily, Zofran 4 mg q.4 hours p.r.n. nausea and vomiting, Grahn 5/325 one tab q.4 hours p.r.n. She is on a glucagon replacement protocol for low blood sugars and polyethylene glycol 17 grams in 8 ounces of water daily. HABITS: No alcohol or tobacco use. FAMILY HISTORY: Noncontributory. HISTORY AND PHYSICAL [id number] SHAWNA CASTANEDA SOCIAL HISTORY: The patient hopes to return back home and get back to her prior level of functioning. REVIEW OF SYSTEMS: GENERAL: Does complain of weakness and fatigue. HEENT: Denies cold, cough, or congestion. CARDIOVASCULAR: Denies chest pain. PHYSICAL EXAMINATION: VITAL SIGNS: Stable, afebrile. GENERAL: A thin female, in no acute distress, alert upon exam. HEENT: Normocephalic and atraumatic. Mucosa moist. NECK: Supple. She does have some mild tenderness. LUNGS: Clear at this time. HEART: Regular rate and rhythm. ABDOMEN: Benign. EXTREMITIES: No clubbing, cyanosis or edema. NEUROLOGIC: She does have some weakness. LABORATORY DATA: Her white count is 6.3, H&H of 11 and 35, and platelet count is 347. Her sodium is 141, potassium 4.0, BUN and creatinine of 9 and 0.5, and blood sugar is noted to be 137. ASSESSMENT: This is an 87-year-old female patient admitted to rehab with a working diagnosis of cervical radiculopathy. The patient has potential to make improvement. We instituted the following multidisciplinary therapies include, but not limited to physical, occupational, respiratory, speech, nutritional services, prosthetics and orthotics. Given her complex medical condition and risk for more complications, rehabilitation services cannot be provided at a lower level of care such as a skilled nurse facility. PLAN: 1. Admit to [facility] rehab for intensive inpatient therapy to include the following disciplines: A. Physical therapy to improve gait, all transfer skills and bed mobility to a modified independent level. 2. The patient's current medication and medical care will be continued. 3. The patient will be placed on standard fall precautions. 4. The patient's estimated length of stay is approximately 7-10 days. 5. We will discuss this patient during care team staff meeting this week. We will involve Dr. Clemente in her care in the future if necessary and I will discuss her case today with care team. TRANSINT:[id number] Voice Confirmation ID: [id number] DOCUMENT ID: [id number] YISSEL notes whether there has been none or any medical/functional change since admission: - No change since preadmission screen. YISSEL attests patient continues to be appropriate for IRF: - Continues to be appropriate. HISTORY AND PHYSICAL [id number] SHAWNA CASTANEDA SCOTT MD at 2041 CC: [id number] DICTATION DATE: 05/09/18 0842 SHIP PURSER: 05/09/18 [address] [facility] [address] [id number]
[~2018-05-08 19:52] MED LIST changes: +DURAGESIC1 PATCH .7 TRANSDERM; +GLUCAGEN1 MG/VIAL IM; +GLUCAGEN1 MG/VIAL SC; +HUMULIN R100 U/ML SC; +HYDROCODON-ACE1 EAC9 PO; +NORCO-5 PO; +ONDANSETRON4 MG/2 M3 IV; +PROTONIX40 MG PO
[2018-05-08 21:48] VITALS: BP 112/66; BMI 21.9
[2018-05-09 06:53] LABS: BASOPHILS 0.5 % (0-2); EOSINOPHILS 3.2 % (0-7); HEMATOCRIT 34.6 % (36.0-48.0); HEMOGLOBIN 10.9 g/dL (12-16); IMMATURE GRANULOCYTES 0.5 % (0-5); LYMPHOCYTES 13.7 % (15-50); MCH 28.5 pg (26.0-34.0); MCHC 31.5 g/dL (31.0-37.0); MCV 90.3 fL (80.0-100.0); MEAN PLATELET VOLUME 9.8 fL (7.4-10.4); MONOCYTES 10.1 % (2-11); PLATELET COUNT 347 10x3/uL (130-400); RBC 3.83 10x6/uL (4.00-5.40); RDW 14.4 % (11.5-14.5); WBC 6.3 10x3/uL (4.8-10.8)
[2018-05-09 07:05] LABS: CALC OSMOLALITY 281 mosm/kg (275-300); CALCIUM 8.8 mg/dL (8.5-10.1); CARBON DIOXIDE 26.8 mmol/L (21.0-32.0); CHLORIDE - SERUM 106 mmol/L (98-107); CREATININE - SERUM 0.5 mg/dL (0.6-1.3); GLUCOSE 137 mg/dL (74-106); SODIUM 141 mmol/L (136-145); UREA NITROGEN 9 mg/dL (7-18); eGFR NON AFRICAN AMERICAN > 90 mL/min (90-120)
[2018-05-09 10:33] VITALS: Ht 147.3 cm; Wt 47.6 kg
[2018-05-11 06:18] LABS: BASOPHILS 0.5 % (0-2); EOSINOPHILS 3.1 % (0-7); HEMATOCRIT 34.8 % (36.0-48.0); IMMATURE GRANULOCYTES 0.7 % (0-5); LYMPHOCYTES 20.9 % (15-50); MCH 28.7 pg (26.0-34.0); MCHC 31.6 g/dL (31.0-37.0); MCV 90.9 fL (80.0-100.0); MEAN PLATELET VOLUME 9.7 fL (7.4-10.4); MONOCYTES 7.7 % (2-11); NEUTROPHILS 67.1 % (40-80); PLATELET COUNT 361 10x3/uL (130-400); RBC 3.83 10x6/uL (4.00-5.40); RDW 14.7 % (11.5-14.5); WBC 5.7 10x3/uL (4.8-10.8)
[2018-05-11 06:39] LABS: CALC OSMOLALITY 271 mosm/kg (275-300); CALCIUM 9.4 mg/dL (8.5-10.1); CARBON DIOXIDE 28.8 mmol/L (21.0-32.0); CHLORIDE - SERUM 102 mmol/L (98-107); GLUCOSE 125 mg/dL (74-106); SODIUM 136 mmol/L (136-145); UREA NITROGEN 11 mg/dL (7-18); eGFR NON AFRICAN AMERICAN 84 mL/min (90-120)
[2018-05-11 06:52] LABS: CREATININE - SERUM 0.7 mg/dL (0.6-1.3)
[2018-05-13 19:30] VITALS: BP 157/80
[2018-05-14 06:52] LABS: BASOPHILS 0.4 % (0-2); EOSINOPHILS 1.7 % (0-7); HEMATOCRIT 35.9 % (36.0-48.0); IMMATURE GRANULOCYTES 0.6 % (0-5); LYMPHOCYTES 14.5 % (15-50); MCH 28.1 pg (26.0-34.0); MCHC 30.6 g/dL (31.0-37.0); MCV 91.6 fL (80.0-100.0); MEAN PLATELET VOLUME 10.1 fL (7.4-10.4); MONOCYTES 8.2 % (2-11); NEUTROPHILS 74.6 % (40-80); PLATELET COUNT 423 10x3/uL (130-400); RBC 3.92 10x6/uL (4.00-5.40); WBC 7.1 10x3/uL (4.8-10.8)
[2018-05-14 07:16] LABS: CALC OSMOLALITY 279 mosm/kg (275-300); CALCIUM 9.5 mg/dL (8.5-10.1); CARBON DIOXIDE 27.7 mmol/L (21.0-32.0); CHLORIDE - SERUM 100 mmol/L (98-107); CREATININE - SERUM 0.7 mg/dL (0.6-1.3); GLUCOSE 129 mg/dL (74-106); POTASSIUM - SERUM 4.5 mmol/L (3.5-5.1); SODIUM 140 mmol/L (136-145); UREA NITROGEN 11 mg/dL (7-18); eGFR NON AFRICAN AMERICAN 84 mL/min (90-120)
[2018-05-14 08:00] VITALS: BP 152/66
[2018-05-14 19:00] VITALS: BP 150/63
[2018-05-15 08:00] VITALS: BP 130/54
[2018-05-15 20:00] VITALS: BP 138/50
[2018-05-16 06:58] LABS: BASOPHILS 0.2 % (0-2); EOSINOPHILS 1.7 % (0-7); HEMATOCRIT 33.2 % (36.0-48.0); HEMOGLOBIN 10.4 g/dL (12-16); IMMATURE GRANULOCYTES 0.5 % (0-5); LYMPHOCYTES 14.2 % (15-50); MCH 28.2 pg (26.0-34.0); MCHC 31.3 g/dL (31.0-37.0); MEAN PLATELET VOLUME 9.7 fL (7.4-10.4); MONOCYTES 9.5 % (2-11); NEUTROPHILS 73.9 % (40-80); PLATELET COUNT 464 10x3/uL (130-400); RBC 3.69 10x6/uL (4.00-5.40); RDW 15.3 % (11.5-14.5)
[2018-05-16 07:05] LABS: WBC 9.4 10x3/uL (4.8-10.8)
[2018-05-16 07:22] LABS: CALC OSMOLALITY 278 mosm/kg (275-300); CALCIUM 9.5 mg/dL (8.5-10.1); CARBON DIOXIDE 30.4 mmol/L (21.0-32.0); CHLORIDE - SERUM 101 mmol/L (98-107); CREATININE - SERUM 0.6 mg/dL (0.6-1.3); GLUCOSE 128 mg/dL (74-106); POTASSIUM - SERUM 4.2 mmol/L (3.5-5.1); SODIUM 138 mmol/L (136-145); UREA NITROGEN 16 mg/dL (7-18); eGFR NON AFRICAN AMERICAN > 90 mL/min (90-120)
[2018-05-16 08:00] VITALS: BP 121/44
[2018-05-16 19:00] VITALS: BP 151/60
[2018-05-17 08:00] VITALS: BP 150/56
[2018-05-17 19:00] VITALS: BP 114/63
[2018-05-18 05:14] LABS: BASOPHILS 0.5 % (0-2); EOSINOPHILS 2.4 % (0-7); HEMOGLOBIN 10.5 g/dL (12-16); IMMATURE GRANULOCYTES 0.6 % (0-5); LYMPHOCYTES 15.5 % (15-50); MCHC 30.9 g/dL (31.0-37.0); MCV 90.7 fL (80.0-100.0); MEAN PLATELET VOLUME 9.7 fL (7.4-10.4); MONOCYTES 9.7 % (2-11); NEUTROPHILS 71.3 % (40-80); PLATELET COUNT 484 10x3/uL (130-400); RBC 3.75 10x6/uL (4.00-5.40); RDW 15.3 % (11.5-14.5)
[2018-05-18 05:21] LABS: WBC 6.4 10x3/uL (4.8-10.8)
[2018-05-18 05:33] LABS: ANION GAP 10.9 mmol/L (8-16); CALCIUM 9.6 mg/dL (8.5-10.1); CARBON DIOXIDE 30.7 mmol/L (21.0-32.0); CREATININE - SERUM 0.8 mg/dL (0.6-1.3); POTASSIUM - SERUM 4.6 mmol/L (3.5-5.1)
[2018-05-18 08:00] VITALS: BP 151/55
[2018-05-18] MEDS ORDERED: LAC-HYDRIN 5226 ML TOPICAL (09:18)
[2018-05-18] MEDS ORDERED: DURAGESIC1 PATCH .7 TRANSDERM (09:20)
[2018-05-18] MEDS ORDERED: NORCO-5 PO (09:20)
== END 2018-05-18 11:07 | disposition home health service (06) | DRG 74 ==
LOC: D.REHAB 19:52
PROVIDERS: Emergency Medicine
DX: M54.12 Radiculopathy, cervical region (principal); N17.9 Acute kidney failure, unspecified; M54.2 Cervicalgia; I10 Essential (primary) hypertension; I48.91 Unspecified atrial fibrillation; M43.12 Spondylolisthesis, cervical region; R53.1 Weakness; K59.00 Constipation, unspecified; R91.1 Solitary pulmonary nodule; E03.9 Hypothyroidism, unspecified; D64.9 Anemia, unspecified; E86.0 Dehydration; Z85.3 Personal history of malignant neoplasm of breast; E11.65 Type 2 diabetes mellitus with hyperglycemia

== ENCOUNTER 2018-05-23 12:38 | Inpatient (IN) | payer MEDICARE, OTHER ==
[~2018-05-23] VITALS: Ht 147.3 cm; Wt 72.6 kg
[2018-05-23] VITALS (7 sets, daily range): BP systolic 93–151; BP diastolic 50–121
[~2018-05-23 12:38] MED LIST changes: +LAC-HYDRIN 5226 ML TOPICAL
[2018-05-23 13:05] LABS: BASOPHILS 0.2 % (0-2); EOSINOPHILS 0.5 % (0-7); HEMATOCRIT 33.4 % (36.0-48.0); HEMOGLOBIN 10.5 g/dL (12-16); IMMATURE GRANULOCYTES 0.5 % (0-5); LYMPHOCYTES 13.3 % (15-50); MCH 27.7 pg (26.0-34.0); MCHC 31.4 g/dL (31.0-37.0); MCV 88.1 fL (80.0-100.0); MEAN PLATELET VOLUME 9.6 fL (7.4-10.4); MONOCYTES 9.3 % (2-11); NEUTROPHILS 76.2 % (40-80); PLATELET COUNT 448 10x3/uL (130-400); RBC 3.79 10x6/uL (4.00-5.40); RDW 15.5 % (11.5-14.5); WBC 9.2 10x3/uL (4.8-10.8)
[2018-05-23 13:20] LABS: ALBUMIN 3.2 g/dL (3.4-5.0); ALKALINE PHOSPHATASE 81 U/L (46-116); ALT (SGPT) 15 U/L (10-68); BILIRUBIN - TOTAL 0.38 mg/dL (0.2-1.3); CALC OSMOLALITY 283 mosm/kg (275-300); CALCIUM 9.8 mg/dL (8.5-10.1); CARBON DIOXIDE 27.9 mmol/L (21.0-32.0); CHLORIDE - SERUM 99 mmol/L (98-107); CREATININE - SERUM 0.9 mg/dL (0.6-1.3); POTASSIUM - SERUM 4.5 mmol/L (3.5-5.1); SODIUM 136 mmol/L (136-145); UREA NITROGEN 32 mg/dL (7-18); eGFR NON AFRICAN AMERICAN 63 mL/min (90-120)
[2018-05-23 13:21] LABS: GLUCOSE 189 mg/dL (74-106)
[2018-05-23 13:36] LABS: CKMB 0.7 U/L (0.0-3.6); CREATINE KINASE 28 UL (21-215); PRO BNP 11467 pg/mL (0-450)
[2018-05-23] MEDS ORDERED: BETAPACE 80 MG80 MG PO (19:05)
[2018-05-23] MEDS ORDERED: ZOFRAN ODT4 MG/UDTAB PO (19:29)
[2018-05-24 01:17] VITALS: BP 123/60
[2018-05-24 01:54] LABS: BASOPHILS 0.3 % (0-2); EOSINOPHILS 0.9 % (0-7); HEMATOCRIT 29.3 % (36.0-48.0); HEMOGLOBIN 9.1 g/dL (12-16); IMMATURE GRANULOCYTES 0.6 % (0-5); LYMPHOCYTES 15.3 % (15-50); MCH 27.4 pg (26.0-34.0); MCHC 31.1 g/dL (31.0-37.0); MCV 88.3 fL (80.0-100.0); MEAN PLATELET VOLUME 9.1 fL (7.4-10.4); MONOCYTES 7.7 % (2-11); NEUTROPHILS 75.2 % (40-80); PLATELET COUNT 386 10x3/uL (130-400); RBC 3.32 10x6/uL (4.00-5.40); RDW 15.4 % (11.5-14.5); WBC 7.9 10x3/uL (4.8-10.8)
[2018-05-24 02:27] LABS: CALCIUM 8.8 mg/dL (8.5-10.1); CARBON DIOXIDE 27.8 mmol/L (21.0-32.0); CHLORIDE - SERUM 100 mmol/L (98-107); GLUCOSE 152 mg/dL (74-106); POTASSIUM - SERUM 4.3 mmol/L (3.5-5.1); SODIUM 137 mmol/L (136-145)
[2018-05-24 02:32] LABS: CALC OSMOLALITY 278 mosm/kg (275-300); CREATININE - SERUM 0.6 mg/dL (0.6-1.3); TROPONIN-I 0.089 ng/mL (0.000-0.060); UREA NITROGEN 19 mg/dL (7-18); eGFR NON AFRICAN AMERICAN > 90 mL/min (90-120)
[2018-05-24 04:00] VITALS: BP 124/57
[2018-05-24 08:22] VITALS: BP 122/53
[2018-05-24] MEDS ORDERED: GLUCOPHAGE500 MG PO (08:41)
[2018-05-24 10:24] VITALS: Ht 147.3 cm; Wt 72.6 kg
[2018-05-24 11:34] VITALS: BP 104/54
[2018-05-24 15:57] VITALS: BP 114/50
[2018-05-24] MEDS ORDERED: MIRALAX17 GM PO (20:10)
[2018-05-24 21:11] VITALS: BP 129/54
[2018-05-25 01:30] VITALS: BP 85/39
[2018-05-25 06:03] VITALS: BP 106/30
[2018-05-25 08:15] LABS: CALCIUM 8.9 mg/dL (8.5-10.1)
[2018-05-25 08:19] LABS: CARBON DIOXIDE 12.9 mmol/L (21.0-32.0)
[2018-05-25 08:20] LABS: POTASSIUM - SERUM 5.9 mmol/L (3.5-5.1)
[2018-05-25 08:26] VITALS: BP 95/25
[2018-05-25 12:27] VITALS: BP 110/52
[2018-05-25 16:40] VITALS: BP 137/61
[2018-05-25 21:17] VITALS: BP 124/48
[2018-05-26 01:26] VITALS: BP 107/48
[2018-05-26 05:39] VITALS: BP 127/53
[2018-05-26 08:57] VITALS: BP 132/68
[2018-05-26 11:51] VITALS: BP 128/76
[2018-05-26 15:51] VITALS: BP 139/65
[2018-05-26 20:00] VITALS: BP 105/52
[2018-05-27 04:00] VITALS: BP 104/68
[2018-05-27 08:05] VITALS: BP 124/63
[2018-05-27] MEDS ORDERED: MULTAQ400 MG PO (12:15)
[2018-05-27] MEDS ORDERED: HYDROCODON-ACE1 EAC7 PO (12:16)
== END 2018-05-27 13:04 | disposition home health service (06) | DRG 309 ==
LOC: D.ER 12:38 → D.M2 16:48 → OBSVTIME 16:49 → D.M2 05-25 15:25
PROVIDERS: Family Medicine; Internal Medicine Cardiovascular Disease
DX: I48.91 Unspecified atrial fibrillation (principal); I24.8 Other forms of acute ischemic heart disease; I25.10 Atherosclerotic heart disease of native coronary artery without angina pectoris; I34.0 Nonrheumatic mitral (valve) insufficiency; E11.9 Type 2 diabetes mellitus without complications; I10 Essential (primary) hypertension